=== PATIENT | female | born 1980 | race Two or more races ===

== ENCOUNTER 2021-01-26 07:00 | Day surgery (SDC) | payer OTHER ==
[~2021-01-26 07:00] MED LIST: ZYRTEC5 MG PO
[2021-01-26] MEDS ORDERED: IBU800 MG PO (11:56)
[2021-01-26] MEDS ORDERED: PERCOCET 5-3251 EACH PO (11:56)
== END 2021-01-26 14:10 | disposition home or self-care (01) ==
LOC: CIR.AMB 07:00
PROVIDERS: ATTEND Obstetrics & Gynecology Gynecology
DX: Z30.2 Encounter for sterilization (principal); Z20.822 Contact with and (suspected) exposure to COVID-19